=== PATIENT | male | born 1990 | race African-American/Black ===

== ENCOUNTER 2019-06-19 16:22 | Emergency (ER) | payer MEDICAID ==
[~2019-06-19] VITALS: Ht 188 cm; Wt 90.9 kg
[2019-06-19 16:27] VITALS: BP 144/87
[2019-06-19] MEDS: IBUPROFEN 400 MG TABLET PO ONE (17:23)
[2019-06-19] MEDS: AMOXICILLIN TRIHYDRATE 250 MG CAPSULE PO ONE (17:24)
== END 2019-06-19 17:49 | disposition home or self-care (01) ==
LOC: EMS 16:22
DX: H66.91 Otitis media, unspecified, right ear (principal); F17.210 Nicotine dependence, cigarettes, uncomplicated
CPT/HCPCS: 99406